=== PATIENT | female | born 1970 | race Asian ===

== ENCOUNTER 2023-07-28 08:39 | Emergency (ER) | payer OTHER ==
[2023-07-28 09:09] LABS: BASOPHILS % (AUTO) 0.3 %; EOSINOPHILS # (AUTO) 0.1 10^3/uL (0.0-0.7); EOSINOPHILS % (AUTO) 0.5 %; HCT - HEMATOCRIT 50.3 % (37.0-47.0); HGB - HEMOGLOBIN 15.4 g/dL (12.0-16.0); LYMPHOCYTES # (AUTO) 1.7 10^3/uL (1.5-3.5); LYMPHOCYTES % (AUTO) 18.1 %; MEAN CORPUSCULAR HEMOGLOBIN 28.4 pg (27.0-31.0); MEAN CORPUSCULAR HGB CONC 30.6 g/dL (32.0-36.0); MEAN CORPUSCULAR VOLUME 92.6 fL (81.0-99.0); MEAN PLATELET VOLUME 9.9 fL (7.9-10.8); MONOCYTES # (AUTO) 1.2 10^3/uL (0.0-1.0); NEUTROPHILS # (AUTO) 6.4 10^3/uL (1.5-6.6); NEUTROPHILS % (AUTO) 67.8 %; PLT - PLATELET COUNT 253 10^3/uL (130-450); RED BLOOD COUNT 5.43 10^6/uL (4.20-5.40); RED CELL DISTRIBUTION WIDTH 12.2 % (12.0-15.0); WHITE BLOOD COUNT 9.5 x10^3/uL (4.8-10.8)
[2023-07-28 09:11] LABS: BILIRUBIN,URINE NEGATIVE (NEGATIVE); GLUCOSE, URINE (UA) NEGATIVE (NEGATIVE); KETONES,URINE (UA) NEGATIVE (NEGATIVE); LEUKOCYTE ESTERASE, URINE MODERATE (NEGATIVE); NITRITE,URINE POSITIVE (NEGATIVE); OCCULT BLOOD,URINE MODERATE (NEGATIVE); PH,URINE 5.5 PH (5.0-7.5); PROTEIN,URINE 30 mg/dL (NEGATIVE); UROBILINOGEN,URINE 0.2 (NORMAL) E.U./dL (NORMAL)
[2023-07-28 09:14] LABS: CLARITY,URINE HAZY (CLEAR); HCG UR QUAL NEGATIVE
[2023-07-28 09:21] LABS: BACTERIA,URINE Moderate /HPF (None Seen); RBC,URINE 0-5 /HPF (0-5); SQUAMOUS EPITHELIAL CELL,UR FEW Squamous (<= Few); WBC,URINE >25 /HPF (0-5)
[2023-07-28 09:33] LABS: ALBUMIN 4.2 g/dL (3.2-5.5); ALBUMIN/GLOBULIN RATIO 1.1 (1.0-2.2); BILIRUBIN,TOTAL 0.6 mg/dL (0.2-1.0); POTASSIUM 3.8 mmol/L (3.5-4.5); TOTAL PROTEIN 7.9 g/dL (6.4-8.9)
--- NOTE | 2023-07-28 09:42 | ED Physician Documentation ---
PD HPI ABD PAIN - Stated complaint Stated Complaint: ,ABD PX - Chief complaint Chief Complaint: Abd Pain - History obtained from History obtained from: Patient - Additional information Additional information: Patient is a 53-year-old female with a history of hypertension presenting for evaluation of lower abdominal pain, right flank pain for the past few days with feeling chills. Denies dysuria or hematuria. No nausea or vomiting. Normal bowel movements. Denies diarrhea. No chest pain, cough, congestion. Seen at the walk-in clinic and directed to the emergency department for further evalu ation. Prior gastric sleeve. No other abdominal surgeries. Review of Systems Constitutional: reports: Chills Cardiac: denies: Chest pain / pressure Respiratory: denies: Dyspnea GI: reports: Abdominal Pain. denies: Vomiting, Diarrhea : denies: Dysuria PD PAST MEDICAL HISTORY - Past Medical History Past Medical History: Yes Cardiovascular: Hypertension Respiratory: Sleep apnea, CPAP use Neuro: None Endocrine/Autoimmune: None GI: None CREATIVE SERVICES DESIGNER: None : None HEENT: None Psych: Depression, Anxiety, Panic attacks Musculoskeletal: None Derm: None - Past Surgical History Past Surgical History: Yes General: Other /CREATIVE SERVICES DESIGNER: Tubal ligation - Present Medications Home Medications: Ambulatory Orders Medication Instructions Recorded Confirmed Amlodipine Besylate [Norvasc] 10 mg PO DAILY 07/28/23 07/28/23 Cefpodoxime Proxetil [Vantin] 100 mg PO Q12H #20 tablet 07/28/23 Dextroamphetamine/Amphetamine 20 mg PO DAILY 07/28/23 07/28/23 [Adderall 10 mg Tablet] Fluconazole [Diflucan] 100 mg PO ONCE #1 tablet 07/28/23 HYDROcod/ACETAM 5/325 [[place] 5/325] 1 tablet PO Q6H PRN #12 tablet 07/28/23 Ondansetron Odt [Zofran] 4 mg TL Q6H PRN #10 tablet 07/28/23 Sertraline HCl 100 mg PO DAILY 07/28/23 07/28/23 Trazodone HCl 100 mg PO HS PRN 07/28/23 07/28/23 atenoloL [Tenormin] 25 mg PO HS 07/28/23 07/28/23 - Allergies Allergies/Adverse Reactions: Allergies Allergy/AdvReac Type Severity Reaction Status Date / Time No Known Drug Allergies Allergy Verified 04/16/24 08:42 - Social History Does the pt smoke?: No Smoking Status: Former smoker Does the pt drink ETOH?: Yes Does the pt have substance abuse?: Yes Substance Use and Type: CBD oil / Products - Immunizations Immunizations are current?: Yes - POLST Patient has POLST: No PD ED PE NORMAL - General General: Alert and oriented X 3, No acute distress, Well developed/nourished - HEENT HEENT: Atraumatic, Moist mucous membranes, Pharynx benign - Neck Neck: Supple, no meningeal sign - Cardiac Cardiac: RRR, Strong equal pulses - Respiratory Respiratory: No respiratory distress, Clear bilaterally - Abdomen Abdomen: Normal bowel sounds, Soft, Non distended, Other (Bilateral lower quadrant tenderness, right flank tenderness, no rebound, no guarding) - Derm Derm: Warm and dry - Neuro Neuro: Normal speech Results - Vitals Vitals: Vital Signs - 24 hr 07/28/23 07/28/23 07/28/23 08:43 10:48 12:00 Temperature 36.9 C 36.3 C L Heart Rate 103 H 88 92 Respiratory 18 16 16 Rate Blood Pressure 162/103 H 165/107 H 141/100 H O2 Saturation 99 96 98 07/28/23 12:53 Temperature 97.4 C H Heart Rate 92 Respiratory 18 Rate Blood Pressure 141/100 H O2 Saturation 98 Oxygen O2 Source Room air - Labs Labs: Laboratory Tests 07/28/23 07/28/23 07/28/23 08:55 09:00 09:00 WBC 9.5 RBC 5.43 H Hgb 15.4 Hct 50.3 H MCV 92.6 MCH 28.4 MCHC 30.6 L RDW 12.2 Plt Count 253 MPV 9.9 Neut # (Auto) 6.4 Lymph # (Auto) 1.7 [place] # (Auto) 1.2 H Eos # (Auto) 0.1 Baso # (Auto) 0.0 Absolute Nucleated RBC 0.00 Nucleated RBC % 0.0 Sodium 137 Potassium 3.8 Chloride 101 Carbon Dioxide 29 Anion Gap 7.0 BUN 21 H Creatinine 1.0 Estimated GFR (MDRD) 58 L Glucose 105 H Lactic Acid Calcium 10.0 Total Bilirubin 0.6 AST 15 ALT 13 Alkaline Phosphatase 89 Total Protein 7.9 Albumin 4.2 Globulin 3.7 Albumin/Globulin Ratio 1.1 Lipase 17 Urine Color DARK YELLOW Urine Clarity HAZY Urine pH 5.5 Ur Specific [place] >=1.030 H Urine Protein 30 H Urine Glucose (UA) NEGATIVE Urine Ketones NEGATIVE Urine Occult Blood MODERATE H Urine Nitrite POSITIVE H Urine Bilirubin NEGATIVE Urine Urobilinogen 0.2 (NORMAL) Ur Leukocyte Esterase MODERATE H Urine RBC 0-5 Urine WBC >25 H Ur Squamous Epith Cells FEW Squamous Urine Bacteria Moderate H Ur Microscopic Review INDICATED Urine Culture Comments INDICATED Urine HCG, Qual NEGATIVE 07/28/23 09:00 WBC RBC Hgb Hct MCV MCH MCHC RDW Plt Count MPV Neut # (Auto) Lymph # (Auto) [place] # (Auto) Eos # (Auto) Baso # (Auto) Absolute Nucleated RBC Nucleated RBC % Sodium Potassium Chloride Carbon Dioxide Anion Gap BUN Creatinine Estimated GFR (MDRD) Glucose Lactic Acid 1.1 Calcium Total Bilirubin AST ALT Alkaline Phosphatase Total Protein Albumin Globulin Albumin/Globulin Ratio Lipase Urine Color Urine Clarity Urine pH Ur Specific [place] Urine Protein Urine Glucose (UA) Urine Ketones Urine Occult Blood Urine Nitrite Urine Bilirubin Urine Urobilinogen Ur Leukocyte Esterase Urine RBC Urine WBC Ur Squamous Epith Cells Urine Bacteria Ur Microscopic Review Urine Culture Comments Urine HCG, Qual PD Medical Decision Making - ED course Complexity details: reviewed results, re-evaluated patient, d/w patient ED course: Patient is a 53-year-old female with right flank and lower abdominal pain with chills. CBC and chemistries were obtained and reviewed without significant findings. Urinalysis is concerning for infection. Given discomfort on exam I did obtain a CT scan which I reviewed and there are findings of inflammation around the right kidney to suggest pyelonephritis but no signs of an obstruction such as a stone. Does not appear septic.Patient is feeling better after IV morphine, fluids and Zofran. Patient was given a dose of IV Rocephin. Will be started on a p.o. antibiotics and pain medications and counseled on need for close follow-up as well as concerning symptoms to return for. She is ambulatory at discharge and feeling better. Departure - Departure Disposition: 01 Home, Self Care Clinical Impression: Pyelonephritis Condition: Stable Instructions: ED Kidney Infec Female Prescriptions: Fluconazole [Diflucan] 100 mg PO ONCE #1 tablet HYDROcod/ACETAM 5/325 [[place] 5/325] 1 tablet PO Q6H PRN #12 tablet PRN Reason: Pain Cefpodoxime Proxetil [Vantin] 100 mg PO Q12H #20 tablet Ondansetron Odt [Zofran] 4 mg TL Q6H PRN #10 tablet PRN Reason: Nausea / Vomiting Comments: You have a kidney infection. I am sending prescriptions for an antibiotic, antinausea medication and pain medicine to [facility] in [place]. Please make sure to complete the course of the antibiotic. Please make sure to get plenty of rest and drink plenty of fluids. Return to the ER with any worsening symptoms. I am prescribing a short course of narcotic pain medication for you. These are potentially dangerous and addictive medications that should be used carefully. These medications may constipate you. Take an [id number] stool softener (docusate) twice daily with plenty of water while taking these medications. If you go 24 hours without a bowel movement, take [id number] miralax, per package instructions. Do not drink or drive while taking these medications. If you received narcotic or sedating medications while in the emergency department, do not drive for 24 hours. Store this medication in a safe, secure place and out of reach of children. It is a violation of federal law to give or sell this medication to another person or to use in a manner other than prescribed. The ED will not refill narcotic prescriptions, including prescriptions lost or stolen. To dispose of unwanted medications: 1. [facility] at [address] [facility] [facility] in [place] has a medication drop box. They accept prescription medications (in pill form) Thursday through Thursday 9:00 a.m. to 5:00 p.m. 2. The [facility] [employer] accepts prescription medications (in pill form only) for disposal year round. Call for more information. 3. Contact the [facility] for the next [facility] sponsored prescription drug collection event. , [phone], or [phone]; Note that many narcotic pain relievers also contain Tylenol/acetaminophen. Please ensure that your total dose of acetaminophen from all sources does not exceed 3 g (3000 mg) per day. Forms: PCP List, Activity restrictions Discharge Date/Time: 07/28/23 12:53
[2023-07-28] MEDS ORDERED: iohexoL-300 100 ML VIAL ONE (09:52)
[2023-07-28] MEDS: SODIUM CHLORIDE 0.9% 1,000 ML IV STA (09:54)
[2023-07-28] MEDS: ONDANSETRON 4 MG/2 ML VIAL IVP STA (09:56)
[2023-07-28] MEDS: MORPHINE 2 MG/ML CARPUJECT IVP STA (10:02)
[2023-07-28] MEDS: iohexoL-300 100 ML VIAL IVP ONE (10:12)
--- NOTE | 2023-07-28 10:48 | CT Report ---
PROCEDURE: Abdomen/Pelvis W INDICATIONS: R sided abd pain/chills CONTRAST: OMNI 300 100ML TECHNIQUE: After the administration of intravenous contrast, a CT scan of the abdomen and pelvis was performed. Images were recorded and evaluated at appropriate window settings. Reformats: coronal and sagittal. F or radiation dose reduction, the following was used: automated exposure control, adjustment of mA and /or kV according to patient size. COMPARISON: None. FINDINGS: Image quality: Diagnostic. Lower chest: Dependent atelectasis. Small hiatal hernia. Liver: No solid mass. Gallbladder and biliary tree: No radiopaque stones or wall thickening. No biliary dilation. Spleen: No splenomegaly. Pancreas: No pancreatic ductal dilation. Adrenals: No adrenal nodule. Kidneys and ureters: No hydronephrosis. Left interpolar simple cyst. Moderate fat stranding of the ri ght renal pelvis and proximal ureter (, ). No renal cystic lesion which requires follow up. N o solid mass. Stomach, bowel and peritoneum: Postsurgical changes of the stomach. Small and large bowel is normal i n caliber, without obstruction. , ). Lymph nodes: No central or retroperitoneal adenopathy. Vessels: No infrarenal aortic aneurysm. Mild calcic dictation of the abdominal aorta. Patent hepatic, portal, splenic and bilateral renal veins. PELVIS Reproductive organs: Unremarkable. Bladder: Decompressed with no abnormal wall thickening, accounting for underdistention. Pelvic lymph nodes: No pelvic adenopathy by size criteria. Bones: No aggressive osseous abnormality. No acute fractures. Mild multilevel degenerative changes of the spine. Grade 1 anterolisthesis of L4 on L5. Other: No significant ventral or inguinal hernia. IMPRESSION: 1.Moderate fat stranding of the right renal pelvis and proximal ureter. No stone. Recommend correlati on with urinalysis and culture. 2.Nonobstructive bowel. Normal appendix. Reviewed by: Jaydon Barnett MD on 07/28/2023 10:47 AM PDT Approved by: Jaydon Barnett MD on 07/28/2023 10:47 AM PDT Station ID: [id number]
[2023-07-28] MEDS: cefTRIAXone 1 GM in SODIUM CHLORIDE 0.9% MINIBAG 100 ML IV STA (11:35)
[2023-07-28 12:19] VITALS: BP 141/100; O2SAT 98
== END 2023-07-28 12:53 | disposition home or self-care (01) ==
LOC: ED 08:39
DX: N12 Tubulo-interstitial nephritis, not specified as acute or chronic (principal); I10 Essential (primary) hypertension; G47.30 Sleep apnea, unspecified; Z98.84 Bariatric surgery status; Z79.899 Other long term (current) drug therapy
CPT/HCPCS: 36415; 74177; 80053; 81001; 81025; 83605; 83690; 85025; 87086; 96365; 96375; 99284; Q9967; 81003; 87181

== ENCOUNTER 2023-08-24 17:43 | Outpatient (CLI) | payer OTHER | END 2023-08-24 17:44 | disposition left against medical advice (07) | LOC: EMS 17:43 | DX: R07.9 Chest pain, unspecified (principal); R61 Generalized hyperhidrosis ==

== ENCOUNTER 2023-08-24 18:23 | Emergency (ER) | payer OTHER ==
--- NOTE | 2023-08-24 18:49 | ED Physician Documentation ---
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 For a little less than half an hour tonight she developed typical chest pain radiating to the back that lasted again a little under 30 minutes. During that time she was not short of breath but she was quite sweaty. She is pain- free now. It started during light activity, folding clothes. PD PAST MEDICAL HISTORY - Past Medical History Past Medical History: Yes Cardiovascular: Hypertension Respiratory: Sleep apnea, CPAP use Neuro: None Endocrine/Autoimmune: None GI: None BEVERAGE HOST: None : None HEENT: None Psych: Depression, Anxiety, Panic attacks Musculoskeletal: None Derm: None - Past Surgical History Past Surgical History: Yes General: Other /BEVERAGE HOST: Tubal ligation - Present Medications Home Medications: Ambulatory Orders Medication Instructions Recorded Confirmed Amlodipine Besylate [Norvasc] 10 mg PO DAILY 07/28/23 07/28/23 Cefpodoxime Proxetil [Vantin] 100 mg PO Q12H #20 tablet 07/28/23 Dextroamphetamine/Amphetamine 20 mg PO DAILY 07/28/23 07/28/23 [Adderall 10 mg Tablet] Fluconazole [Diflucan] 100 mg PO ONCE #1 tablet 07/28/23 HYDROcod/ACETAM 5/325 [[place] 5/325] 1 tablet PO Q6H PRN #12 tablet 07/28/23 Ondansetron Odt [Zofran] 4 mg TL Q6H PRN #10 tablet 07/28/23 Sertraline HCl 100 mg PO DAILY 07/28/23 07/28/23 Trazodone HCl 100 mg PO HS PRN 07/28/23 07/28/23 atenoloL [Tenormin] 25 mg PO HS 07/28/23 07/28/23 - Allergies Allergies/Adverse Reactions: Allergies Allergy/AdvReac Type Severity Reaction Status Date / Time No Known Drug Allergies Allergy Verified 08/24/23 18:26 - Social History Does the pt smoke?: No Smoking Status: Never smoker Does the pt drink ETOH?: Yes Does the pt have substance abuse?: Yes - Immunizations Immunizations are current?: Yes - POLST Patient has POLST: No PD ED PE NORMAL - Vitals Vital signs reviewed: Yes - General General: Alert and oriented X 3, No acute distress - Cardiac Cardiac: RRR, No murmur - Respiratory Respiratory: No respiratory distress, Clear bilaterally - Abdomen Abdomen: Non tender - Extremities Extremities: No edema, No calf tenderness / cord - Neuro Neuro: Alert and oriented X 3, Normal speech Results - Vitals Vitals: Vital Signs - 24 hr 08/24/23 08/24/23 18:26 19:00 Temperature 36.8 C Heart Rate 72 72 Respiratory 16 16 Rate Blood Pressure 150/00 H 179/111 H O2 Saturation 98 98 Oxygen O2 Source Room air - EKG (time done) 1832 EKG releavant findings:: EKG personally interpreted by author of this note. Relevant findings are: Rate: Rate (enter#) (71) Rhythm: NSR [place]: Normal Intervals: Normal [place] QRS: LVH Ischemia: Normal ST segments - Labs Labs: Laboratory Tests 08/24/23 08/24/23 18:55 18:55 WBC 11.9 H RBC 4.62 Hgb 13.0 Hct 41.8 MCV 90.5 MCH 28.1 MCHC 31.1 L RDW 11.9 L Plt Count 268 MPV 9.3 Neut # (Auto) 8.6 H Lymph # (Auto) 2.0 [place] # (Auto) 0.9 Eos # (Auto) 0.3 Baso # (Auto) 0.0 Absolute Nucleated RBC 0.00 Nucleated RBC % 0.0 Sodium 140 Potassium 4.0 Chloride 106 Carbon Dioxide 28 Anion Gap 6.0 BUN 20 Creatinine 0.7 Estimated GFR (MDRD) 88 L Glucose 103 Calcium 9.4 Total Bilirubin 0.3 AST 17 ALT 11 Alkaline Phosphatase 81 Troponin I High Sens 4.9 Total Protein 7.0 Albumin 3.7 Globulin 3.3 Albumin/Globulin Ratio 1.1 Lipase 24 PD Medical Decision Making - ED course ED course: She presents after a concerning episode of chest pain but is chest pain-free here with nonischemic EKG and negative biomarkers. She did have evidence of LVH on her EKG and follow-up echocardiography and stress testing were advised. Departure - Departure Disposition: 01 Home, Self Care Clinical Impression: Chest pain Qualifiers: Chest pain type: precordial pain Qualified Code(s): R07.2 - Precordial pain Condition: Good Instructions: ED Chest Pain Atypical Unkn Cause Comments: On your EKG tonight you have evidence of LVH (left ventricular hypertrophy. This should be discussed with your primary care physician and follow-up, they may want to order an echocardiogram. As far as the pain episode tonight, there is no evidence of acute heart attack on your EKG or cardiac enzymes. That said you also need to contact your primary care physician for expedited stress testing. Until advised otherwise I recommend you take a baby aspirin (81 mg) daily. If pain recurs, please return immediately for reevaluation. Forms: PCP List
[2023-08-24 19:00] LABS: BASOPHILS % (AUTO) 0.3 %; EOSINOPHILS # (AUTO) 0.3 10^3/uL (0.0-0.7); EOSINOPHILS % (AUTO) 2.4 %; HCT - HEMATOCRIT 41.8 % (37.0-47.0); LYMPHOCYTES % (AUTO) 16.5 %; MEAN CORPUSCULAR HEMOGLOBIN 28.1 pg (27.0-31.0); MEAN CORPUSCULAR HGB CONC 31.1 g/dL (32.0-36.0); MEAN CORPUSCULAR VOLUME 90.5 fL (81.0-99.0); MEAN PLATELET VOLUME 9.3 fL (7.9-10.8); MONOCYTES # (AUTO) 0.9 10^3/uL (0.0-1.0); MONOCYTES % (AUTO) 7.6 %; NEUTROPHILS # (AUTO) 8.6 10^3/uL (1.5-6.6); NEUTROPHILS % (AUTO) 71.8 %; PLT - PLATELET COUNT 268 10^3/uL (130-450); RED BLOOD COUNT 4.62 10^6/uL (4.20-5.40); RED CELL DISTRIBUTION WIDTH 11.9 % (12.0-15.0); WHITE BLOOD COUNT 11.9 x10^3/uL (4.8-10.8)
[2023-08-24 19:01] VITALS: BP 179/111
[2023-08-24 19:18] LABS: ALBUMIN 3.7 g/dL (3.2-5.5); ALBUMIN/GLOBULIN RATIO 1.1 (1.0-2.2); BILIRUBIN,TOTAL 0.3 mg/dL (0.2-1.0); CALCIUM 9.4 mg/dL (8.5-10.3); CREATININE 0.7 mg/dL (0.6-1.3)
[2023-08-24 19:21] LABS: TROPONIN I HIGH SENSITIVITY 4.9 ng/L (2.3-14.8)
--- NOTE | 2023-08-24 19:41 | XRAY Report ---
PROCEDURE: Chest 1V INDICATIONS: Chest pain TECHNIQUE: One view of the chest was acquired. COMPARISON: None. FINDINGS: Surgical changes and devices: None. Lungs and pleura: No pleural effusions or pneumothorax. Lungs are clear. Mediastinum: Mediastinal contours appear normal. Heart size is normal. Bones and chest wall: No suspicious bony lesions. Overlying soft tissues appear unremarkable. IMPRESSION: No acute cardiopulmonary process. Reviewed by: Alex Serrato MD on 08/24/2023 7:40 PM PDT Approved by: Alex Serrato MD on 08/24/2023 7:40 PM PDT Station ID: [id number]
[2023-08-24 19:49] VITALS: O2SAT 99
== END 2023-08-24 19:43 | disposition home or self-care (01) ==
LOC: ED 18:23
DX: R07.2 Precordial pain (principal); I10 Essential (primary) hypertension; Z79.899 Other long term (current) drug therapy
CPT/HCPCS: 36415; 80053; 83690; 84484; 85025; 93005; 99284